=== PATIENT | male | born 1950 | race Caucasian/White ===

== ENCOUNTER 2022-08-12 05:44 | Day surgery (SDC) | payer MEDICARE, MEDICAID ==
[~2022-08-12] VITALS: Ht 172.7 cm; Wt 77.7 kg
[2022-08-12] MEDS ORDERED: POVIDONE-IODINE 5% 30 ML OPHTHALMIC SOLUTION OS ONE (05:45)
[2022-08-12] MEDS ORDERED: FentaNYL CITRATE PF 100 MCG/2 ML VIAL IVP ONE (05:45)
[2022-08-12] MEDS ORDERED: TETRACAINE HCL/PF 0.5% 4 ML OPHTHALMIC SOLUTION OS ONE ×2 (05:45→06:30)
[2022-08-12] MEDS ORDERED: LIDOCAINE/PF 1% 2 ML VIAL IM ONE (05:45)
[2022-08-12] MEDS ORDERED: PrednisoLONE ACETATE 1% 5 ML OPHTHALMIC SUSPENSION OS ONE (05:45)
[2022-08-12] MEDS ORDERED: NEOMYCIN/POLYMYXIN B/DEXAMETH 3.5 GM OPHTHALMIC OINTMENT OS ONE (05:45)
[2022-08-12] MEDS ORDERED: EPINEPHrine 1:1,000 [1 MG/ML] VIAL IM ONE (05:45)
[2022-08-12] MEDS ORDERED: BALANCED SALT 15 ML OPHTHALMIC IRRIG.SOLN OS ONE (05:45)
[2022-08-12] MEDS ORDERED: HYALURONATE SOD 8.5MG/0.85ML 10 MG/ML SYRINGE IO ONE (05:45)
[2022-08-12] MEDS ORDERED: MIDAZOLAM HCL 2 MG/2 ML VIAL IVP ONE (05:45)
[2022-08-12] MEDS ORDERED: RINGERS SOLUTION,LACTATED 500 ML IV ONE ×2 (06:00→06:09)
[2022-08-12] MEDS ORDERED: CYCLOPENTOLATE HCL 1% 2 ML OPHTHALMIC SOLUTION ONE (06:09)
[2022-08-12] MEDS ORDERED: PHENYLEPHRINE HCL 2.5% 2 ML OPHTHALMIC SOLUTION ONE (06:09)
[2022-08-12] MEDS ORDERED: TETRACAINE HCL/PF 0.5% 4 ML OPHTHALMIC SOLUTION ONE (06:09)
[2022-08-12] MEDS ORDERED: KETOROLAC TROMETHAMINE 0.5% 5 ML OPHTHALMIC SOLUTION ONE (06:09)
[2022-08-12] MEDS ORDERED: MOXIFLOXACIN HCL 0.5% 3 ML OPHTHALMIC SOLUTION ONE (06:09)
[2022-08-12] MEDS ORDERED: TROPICAMIDE 1% 2 ML OPHTHALMIC SOLUTION ONE (06:09)
[2022-08-12] MEDS ORDERED: PROPARACAINE HCL 0.5% 15 ML OPHTHALMIC SOLUTION OS ONE (06:30)
[2022-08-12] MEDS: KETOROLAC TROMETHAMINE 0.5% 5 ML OPHTHALMIC SOLUTION OS SCH ×3 (06:37→06:52)
[2022-08-12] MEDS: CYCLOPENTOLATE HCL 1% 2 ML OPHTHALMIC SOLUTION OS SCH ×3 (06:39→06:52)
[2022-08-12] MEDS: TROPICAMIDE 1% 2 ML OPHTHALMIC SOLUTION OS SCH ×3 (06:39→06:52)
[2022-08-12] MEDS: PHENYLEPHRINE HCL 2.5% 2 ML OPHTHALMIC SOLUTION OS SCH ×3 (06:39→06:52)
[2022-08-12] MEDS: MOXIFLOXACIN HCL 0.5% 3 ML OPHTHALMIC SOLUTION OS SCH ×3 (06:40→06:52)
[2022-08-12] MEDS: TETRACAINE HCL/PF 0.5% 4 ML OPHTHALMIC SOLUTION OS SCH ×2 (06:45→06:51)
[2022-08-12] MEDS ORDERED: LISI-894 PO (07:12)
[2022-08-12] MEDS ORDERED: METF-1211 PO (07:12)
[2022-08-12] MEDS ORDERED: TAMS-13 PO (07:12)
[2022-08-12] MEDS ORDERED: ATOR40TA28 PO (07:12)
[2022-08-12] MEDS ORDERED: ASPI-1450 PO (07:12)
[2022-08-12 07:21] LABS: GLUCOMETER DEV NAME(LOC) SDS.; GLUCOSE,POINT OF CARE 80 MG/DL (70-110)
== END 2022-08-12 10:50 | disposition home or self-care (01) ==
LOC: SURGERY 05:44
PROVIDERS: ATTEND Ophthalmology
DX: E11.36 Type 2 diabetes mellitus with diabetic cataract (principal); H25.12 Age-related nuclear cataract, left eye; E11.39 Type 2 diabetes mellitus with other diabetic ophthalmic complication; H40.1122 Primary open-angle glaucoma, left eye, moderate stage; Z79.899 Other long term (current) drug therapy
CPT/HCPCS: 66984; 82962; 93005; 66174; J0171; J3010; J3490; J2250; Q9967; J7120; V2632